=== PATIENT | male | born 1965 | race Caucasian/White ===

== ENCOUNTER 2017-06-30 09:31 | Emergency (ER) | payer MEDICAID ==
[2017-06-30] MEDS: DIPHTH/TET/ACEL PERTUSS (ADULT) 0.5 ML VIAL IM (09:58)
[2017-06-30] MEDS: HYDROCODONE/APAP (5/325) TAB PO (09:59)
[2017-06-30] MEDS: SODIUM CHLORIDE 0.9% 1L IRRIG IRR (09:59)
[2017-06-30] MEDS: LIDOCAINE 1% (MDV) 20 ML INJ SC (10:01)
[2017-06-30] MEDS: LIDOCAINE 1% (MDV) 10 ML INJ INJ (10:21)
[2017-06-30] MEDS: CEFAZOLIN 1 GM INJ IM (12:21)
== END 2017-06-30 12:57 | disposition home or self-care (01) ==
LOC: FTE 09:31
DX: S68.122A Partial traumatic metacarpophalangeal amputation of right middle finger, initial encounter (principal); F17.210 Nicotine dependence, cigarettes, uncomplicated; X58.XXXA Exposure to other specified factors, initial encounter; Y92.9 Unspecified place or not applicable; Z23 Encounter for immunization
CPT/HCPCS: 12002; 73130-RT; 90471; 90715; 96372; 99284-25

== ENCOUNTER 2017-07-02 07:45 | Emergency (ER) | payer MEDICAID ==
[2017-07-02] MEDS: HYDROCODONE/APAP (5/325) TAB PO (08:31)
== END 2017-07-02 08:43 | disposition home or self-care (01) ==
LOC: FTE 07:45
DX: S68.624D Partial traumatic transphalangeal amputation of right ring finger, subsequent encounter (principal); F17.210 Nicotine dependence, cigarettes, uncomplicated; X58.XXXD Exposure to other specified factors, subsequent encounter
CPT/HCPCS: 99283; Z7502